=== PATIENT | male | born 2000 | race Caucasian/White ===

== ENCOUNTER 2020-11-28 10:32 | Emergency (ER) | payer SELFPAY ==
[2020-11-29 01:27] LABS: SARS-CoV-2 PCR by NAA Not Detected (NotDetected)
== END 2020-11-28 11:12 | disposition home or self-care (01) ==
LOC: MADERS 10:32
DX: J06.9 Acute upper respiratory infection, unspecified (principal); Z20.822 Contact with and (suspected) exposure to COVID-19; F17.210 Nicotine dependence, cigarettes, uncomplicated; J42 Unspecified chronic bronchitis; M41.9 Scoliosis, unspecified
CPT/HCPCS: 87635; 99283; U0003; U0005

== ENCOUNTER 2020-12-04 07:11 | Emergency (ER) | payer OTHER, SELFPAY ==
[2020-12-04] MEDS ORDERED: Boostrix 0.5 ML (Tdap) VIAL ONE (07:57)
== END 2020-12-04 08:57 | disposition home or self-care (01) ==
LOC: MADERS 07:11
DX: S63.502A Unspecified sprain of left wrist, initial encounter (principal); S60.221A Contusion of right hand, initial encounter; S60.512A Abrasion of left hand, initial encounter; S80.212A Abrasion, left knee, initial encounter; S70.312A Abrasion, left thigh, initial encounter; S40.212A Abrasion of left shoulder, initial encounter; S20.412A Abrasion of left back wall of thorax, initial encounter; S00.81XA Abrasion of other part of head, initial encounter; J42 Unspecified chronic bronchitis; M41.9 Scoliosis, unspecified; F17.210 Nicotine dependence, cigarettes, uncomplicated; V86.56XA Driver of dirt bike or motor/cross bike injured in nontraffic accident, initial encounter
CPT/HCPCS: 90471; 90715

== ENCOUNTER 2021-01-29 14:51 | Emergency (ER) | payer SELFPAY ==
[2021-01-29] MEDS ORDERED: Ondansetron ODT 4 MG TAB ONE (15:30)
== END 2021-01-29 15:38 | disposition home or self-care (01) ==
LOC: MADERS 14:51
DX: K52.9 Noninfective gastroenteritis and colitis, unspecified (principal); J42 Unspecified chronic bronchitis; F17.210 Nicotine dependence, cigarettes, uncomplicated
CPT/HCPCS: 99283; Q0162